=== PATIENT | female | born 1975 | race American Indian/Alaskan Native ===

== ENCOUNTER 2018-12-04 16:11 | Emergency (ER) | payer MEDICAID ==
[2018-12-04] MEDS ORDERED: KEPPRA 1,000 MG/NS 0.75% 100ML 1,000 MG/100 ML BAG IV ONE ×2 (16:28→16:31)
[2018-12-04 17:27] LABS: Basophils % (Auto) 0.5 % (0.0-1.8); Eosinophils # (Auto) 0.1 K/mm3 (0.0-0.4); Eosinophils % (Auto) 1.7 % (0.0-4.3); Hematocrit 36.6 % (30.3-42.9); Lymphocytes # (Auto) 1.2 K/mm3 (1.2-5.4); Lymphocytes % (Auto) 17.3 % (13.4-35.0); Mean Corpuscular HGB Conc 33 % (30-34); Mean Corpuscular Volume 85 fl (79-97); Monocytes # (Auto) 0.3 K/mm3 (0.0-0.8); Monocytes % (Auto) 4.7 % (0.0-7.3); Platelet Count 314 K/mm3 (140-440); Red Blood Count 4.31 M/mm3 (3.65-5.03); Red Cell Distribution Width 16.3 % (13.2-15.2)
[2018-12-04 17:44] LABS: Alanine Aminotransferase 11 units/L (7-56); Albumin 3.6 g/dL (3.9-5); BUN/Creatinine Ratio 9; Blood Urea Nitrogen 9 mg/dL (7-17); Calcium 8.9 mg/dL (8.4-10.2); Hemolysis Index 4
[2018-12-04 18:13] VITALS: BP 153/112
[2018-12-04] MEDS ORDERED: NORCO 5/325 PO ONE (18:16)
[2018-12-04 18:47] LABS: HCG Qualitative,Urine Negative (Negative)
[2018-12-04 18:50] LABS: Bacteria,Urine 1+ /HPF (Negative); Bilirubin,Urine NEG (Negative); Blood,Urine MOD (Negative); Color,Urine Yellow (Yellow); Mucus,Urine FEW /HPF; Urobilinogen,Urine < 2.0 mg/dL (<2.0)
--- NOTE | 2018-12-04 19:19 | Emergency Department Report ---
ED Seizure HPI - General Chief Complaint: Seizure Stated Complaint: SEIZURE Time Seen by Provider: 12/04/18 16:50 Source: patient Mode of arrival: Stretcher Limitations: No Limitations - History of Present Illness Initial Comments: h/o seizure d/o had a seizure at home today, ran out of keppra for a week. no obvious injuries. has h/o htn, also ran out of medications. wants meds refill. Complaint: seizure -: Gradual Description of Episode: loss of consciousness, tonic-clonic movement Duration of Episode: 30 -: second(s) Witnessed:: Yes Trauma: No Seizure History: known seizure disorder Place: home Possible Precipitating Event: none Associated Symptoms: denies other symptoms Treatments Prior to Arrival: none - Related Data Home Medications Medication Instructions Recorded Confirmed Last Taken Divalproex Sodium [Divalproex 500 mg PO DAILY 09/27/17 09/27/17 09/26/17 08:00 Sodium ER] Previous Rx's Medication Instructions Recorded Last Taken Type Aspirin [Aspirin EC] 81 mg PO DAILY #30 tablet. 09/27/17 Unknown Rx Olmesartan/Hydrochlorothiazide 1 tab PO QDAY 30 Days #30 tablet 12/04/18 Unknown Rx [Benicar HCT 20-12.5 mg] amLODIPine [Norvasc] 10 mg PO QDAY #30 tablet 12/04/18 Unknown Rx levETIRAcetam [Keppra TAB] 500 mg PO BID 30 Days #60 tablet 12/04/18 Unknown Rx Allergies Allergy/AdvReac Type Severity Reaction Status Date / Time lisinopril Allergy Hives Verified 09/26/17 16:22 Penicillins Allergy Rash Verified 02/17/16 07:57 ED Review of Systems ROS: Stated complaint: SEIZURE Other details as noted in HPI Comment: All other systems reviewed and negative Constitutional: denies: diaphoresis Gastrointestinal: denies: nausea, vomiting Genitourinary: denies: urgency, dysuria Skin: denies: rash Neurological: headache. denies: confusion ED Past Medical Hx - Past Medical History Previous Medical History?: Yes Hx Hypertension: Yes Hx CVA: Yes Hx Heart Attack/AMI: No Hx Congestive Heart Failure: No Hx Diabetes: No Hx Deep Vein Thrombosis: No Hx Pulmonary Embolism: No Hx GERD: No Hx Liver Disease: No Hx Renal Disease: No Hx Sickle Cell Disease: No Hx Arthritis: No Hx Headaches / Migraines: No Hx Seizures: Yes Hx Kidney Stones: No Hx Psychiatric Treatment: No Hx Asthma: No Hx COPD: No Hx Tuberculosis: No Hx Dementia: No Hx HIV: No Additional medical history: Seizures, Vaginal delivery x 2 - Surgical History Hx Coronary Stent: No Hx Open Heart Surgery: No Hx Pacemaker: No Hx Internal Defibrillator: No Hx Cholecystectomy: No Hx Appendectomy: No Hx Breast Surgery: No Additional Surgical History: cyst removed from left arm pit. - Social History Smoking Status: Never Smoker Substance Use Type: None - Medications Home Medications: Home Medications Medication Instructions Recorded Confirmed Last Taken Type Aspirin [Aspirin EC] 81 mg PO DAILY #30 tablet. 09/27/17 Unknown Rx Divalproex Sodium [Divalproex 500 mg PO DAILY 09/27/17 09/27/17 09/26/17 08:00 History Sodium ER] Olmesartan/Hydrochlorothiazide 1 tab PO QDAY 30 Days #30 tablet 12/04/18 Unknown Rx [Benicar HCT 20-12.5 mg] amLODIPine [Norvasc] 10 mg PO QDAY #30 tablet 12/04/18 Unknown Rx levETIRAcetam [Keppra TAB] 500 mg PO BID 30 Days #60 tablet 12/04/18 Unknown Rx ED Physical Exam - General Limitations: No Limitations General appearance: alert, in no apparent distress - Head Head exam: Present: atraumatic, normocephalic - Eye Eye exam: Present: normal appearance, PERRL, EOMI Pupils: Present: normal accommodation - ENT ENT exam: Present: normal exam, normal orophraynx - Neck Neck exam: Present: normal inspection - Respiratory Respiratory exam: Present: normal lung sounds bilaterally - Cardiovascular Cardiovascular Exam: Present: regular rate, normal rhythm - GI/Abdominal GI/Abdominal exam: Present: soft, normal bowel sounds - External exam: Present: normal external exam - Neurological Exam Neurological exam: Present: alert, oriented X3 ED Course Vital Signs 12/04/18 12/04/18 18:12 18:13 Temperature 98.3 F Pulse Rate 75 Respiratory 18 18 Rate Blood Pressure 153/112 [Left] O2 Sat by Pulse 100 100 Oximetry ED Medical Decision Making - Lab Data Result diagrams: 12/04/18 17:07 12/04/18 17:07 Critical care attestation.: If time is entered above; I have spent that time in minutes in the direct care of this critically ill patient, excluding procedure time. ED Disposition Clinical Impression: Seizure disorder Disposition: DC-01 TO HOME OR SELFCARE Is pt being admited?: No Does the pt Need Aspirin: No Condition: Stable Prescriptions: Olmesartan/Hydrochlorothiazide [Benicar HCT 20-12.5 mg] 1 tab PO QDAY 30 Days #30 tablet levETIRAcetam [Keppra TAB] 500 mg PO BID 30 Days #60 tablet amLODIPine [Norvasc] 10 mg PO QDAY #30 tablet Referrals: ZACK MCQUEEN MD [Primary Care Provider] - 3-5 Days
== END 2018-12-04 19:50 | disposition home or self-care (01) ==
LOC: ED 16:11
DX: G40.909 Epilepsy, unspecified, not intractable, without status epilepticus (principal); I10 Essential (primary) hypertension; I25.2 Old myocardial infarction; Z79.899 Other long term (current) drug therapy; Z76.0 Encounter for issue of repeat prescription; Z88.0 Allergy status to penicillin; Z88.6 Allergy status to analgesic agent
CPT/HCPCS: 36415; 80053; 81001; 81025; 85025; 96365; 99284; J1953

== ENCOUNTER 2019-01-27 17:41 | Emergency (ER) | payer MEDICAID ==
[2019-01-27] MEDS ORDERED: levETIRAcetam 500 MG TAB PO ONE (18:54)
[2019-01-27] MEDS ORDERED: LORazepam 2 MG/ML VIAL IV ONE (18:55)
--- NOTE | 2019-01-27 19:08 | Emergency Department Report ---
ED General Adult HPI - General Chief complaint: Seizure Stated complaint: Seizure Time Seen by Provider: 01/27/19 18:22 Source: patient, EMS Mode of arrival: Stretcher Limitations: No Limitations - History of Present Illness Initial comments: Patient presents to the emergency department for seizure. Patient has a history of seizures and takes 1500 mg of Keppra daily. Patient endorses that her seizure frequency has increased recently due to stressors at home. Patient denies headache, chest pain, or shortness of breath. The was present going from her seizure and the patient did not hit her head. -: Sudden Severity scale (0 -10): 0 Consistency: now resolved Improves with: none Worsens with: none Associated Symptoms: denies other symptoms Treatments Prior to Arrival: none - Related Data Home Medications Medication Instructions Recorded Confirmed Last Taken Divalproex Sodium [Divalproex 500 mg PO DAILY 09/27/17 09/27/17 09/26/17 08:00 Sodium ER] Previous Rx's Medication Instructions Recorded Last Taken Type Aspirin [Aspirin EC] 81 mg PO DAILY #30 tablet. 09/27/17 Unknown Rx Olmesartan/Hydrochlorothiazide 1 tab PO QDAY 30 Days #30 tablet 12/04/18 Unknown Rx [Benicar HCT 20-12.5 mg] amLODIPine [Norvasc] 10 mg PO QDAY #30 tablet 12/04/18 Unknown Rx levETIRAcetam [Keppra TAB] 500 mg PO BID 30 Days #60 tablet 12/04/18 Unknown Rx Allergies Allergy/AdvReac Type Severity Reaction Status Date / Time lisinopril Allergy Hives Verified 09/26/17 16:22 Penicillins Allergy Rash Verified 02/17/16 07:57 ED Review of Systems ROS: Stated complaint: Seizure Other details as noted in HPI Comment: All other systems reviewed and negative Constitutional: denies: chills, fever Eyes: denies: eye pain, eye discharge, vision change ENT: denies: ear pain, throat pain Respiratory: denies: cough, shortness of breath, wheezing Cardiovascular: denies: chest pain, palpitations Endocrine: no symptoms reported Gastrointestinal: denies: abdominal pain, nausea, diarrhea Genitourinary: denies: urgency, dysuria, discharge Musculoskeletal: denies: back pain, joint swelling, arthralgia Skin: denies: rash, lesions Neurological: denies: headache, weakness, paresthesias Psychiatric: denies: anxiety, depression Hematological/Lymphatic: denies: easy bleeding, easy bruising ED Past Medical Hx - Past Medical History Hx Hypertension: Yes Hx CVA: Yes Hx Heart Attack/AMI: No Hx Congestive Heart Failure: No Hx Diabetes: No Hx Deep Vein Thrombosis: No Hx Pulmonary Embolism: No Hx GERD: No Hx Liver Disease: No Hx Renal Disease: No Hx Sickle Cell Disease: No Hx Arthritis: No Hx Headaches / Migraines: No Hx Seizures: Yes Hx Kidney Stones: No Hx Psychiatric Treatment: No Hx Asthma: No Hx COPD: No Hx Tuberculosis: No Hx Dementia: No Hx HIV: No Additional medical history: Seizures, Vaginal delivery x 2 - Surgical History Hx Coronary Stent: No Hx Open Heart Surgery: No Hx Pacemaker: No Hx Internal Defibrillator: No Hx Cholecystectomy: No Hx Appendectomy: No Hx Breast Surgery: No Additional Surgical History: cyst removed from left arm pit. - Social History Smoking Status: Never Smoker - Medications Home Medications: Home Medications Medication Instructions Recorded Confirmed Last Taken Type Aspirin [Aspirin EC] 81 mg PO DAILY #30 tablet. 09/27/17 Unknown Rx Divalproex Sodium [Divalproex 500 mg PO DAILY 09/27/17 09/27/17 09/26/17 08:00 History Sodium ER] Olmesartan/Hydrochlorothiazide 1 tab PO QDAY 30 Days #30 tablet 12/04/18 Unknown Rx [Benicar HCT 20-12.5 mg] amLODIPine [Norvasc] 10 mg PO QDAY #30 tablet 12/04/18 Unknown Rx levETIRAcetam [Keppra TAB] 500 mg PO BID 30 Days #60 tablet 12/04/18 Unknown Rx ED Physical Exam - General Limitations: No Limitations General appearance: alert, in no apparent distress - Head Head exam: Present: atraumatic, normocephalic - Eye Eye exam: Present: normal appearance, PERRL, EOMI - ENT ENT exam: Present: mucous membranes moist - Neck Neck exam: Present: normal inspection - Respiratory Respiratory exam: Present: normal lung sounds bilaterally. Absent: respiratory distress - Cardiovascular Cardiovascular Exam: Present: regular rate, normal rhythm. Absent: systolic murmur, diastolic murmur, rubs, gallop - GI/Abdominal GI/Abdominal exam: Present: soft, normal bowel sounds - Extremities Exam Extremities exam: Present: normal inspection - Back Exam Back exam: Present: normal inspection - Neurological Exam Neurological exam: Present: alert, oriented X3, CN II-XII intact. Absent: motor sensory deficit - Psychiatric Psychiatric exam: Present: normal affect, normal mood - Skin Skin exam: Present: warm, dry, intact, normal color. Absent: rash ED Course Vital Signs 01/27/19 01/27/19 01/27/19 17:58 18:00 18:01 Temperature 98.9 F Pulse Rate 87 87 87 Respiratory 15 15 14 Rate Blood Pressure 139/86 Blood Pressure 139/86 [Right] O2 Sat by Pulse 99 99 99 Oximetry 01/27/19 01/27/19 01/27/19 18:02 18:16 18:30 Temperature Pulse Rate 87 83 Respiratory 14 16 18 Rate Blood Pressure 139/86 139/86 Blood Pressure [Right] O2 Sat by Pulse 99 99 99 Oximetry 01/27/19 01/27/19 01/27/19 18:46 19:14 19:16 Temperature Pulse Rate 79 Respiratory 10 L Rate Blood Pressure 139/86 139/86 139/86 Blood Pressure [Right] O2 Sat by Pulse 97 Oximetry 01/27/19 19:35 Temperature Pulse Rate Respiratory Rate Blood Pressure 139/86 Blood Pressure [Right] O2 Sat by Pulse 82 L Oximetry ED Medical Decision Making - Lab Data Result diagrams: 01/27/19 19:37 Lab Results 01/27/19 Range/Units 19:37 Sodium 136 L (137-145) mmol/L Potassium 3.7 (3.6-5.0) mmol/L Chloride 103.3 (98-107) mmol/L Carbon Dioxide 24 (22-30) mmol/L Anion Gap 12 mmol/L BUN 9 (7-17) mg/dL Creatinine 0.9 (0.7-1.2) mg/dL Estimated GFR > 60 ml/min BUN/Creatinine Ratio 10 % Glucose 98 (65-100) mg/dL Calcium 8.4 (8.4-10.2) mg/dL - Medical Decision Making She'll receive IV Ativan and by mouth [place] Discussed plan of care with patient and her Critical care attestation.: If time is entered above; I have spent that time in minutes in the direct care of this critically ill patient, excluding procedure time. ED Disposition Clinical Impression: Seizure Disposition: DC-01 TO HOME OR SELFCARE Is pt being admited?: No Does the pt Need Aspirin: No Condition: Stable Instructions: Recurrent Seizures Adult (ED) Additional Instructions: return if worse Referrals: PRIMARY CARE,MD [Primary Care Provider] - 3-5 Days [facility] [Provider Group] - 3-5 Days [facility] [Provider Group] - 3-5 Days Time of Disposition: 20:47
[2019-01-27 20:14] LABS: BUN/Creatinine Ratio 10; Blood Urea Nitrogen 9 mg/dL (7-17); Calcium 8.4 mg/dL (8.4-10.2); Hemolysis Index 9
[2019-01-27 21:17] VITALS: BP 137/82
== END 2019-01-27 21:17 | disposition home or self-care (01) ==
LOC: ED 17:41
DX: R56.9 Unspecified convulsions (principal); I10 Essential (primary) hypertension; Z86.73 Personal history of transient ischemic attack (TIA), and cerebral infarction without residual deficits; Z88.0 Allergy status to penicillin; Z88.6 Allergy status to analgesic agent
CPT/HCPCS: 36415; 80048; 93005; 93010; 96374; 99284; J2060

== ENCOUNTER 2019-09-08 11:00 | Emergency (ER) | payer MEDICAID ==
[2019-09-08] MEDS ORDERED: levETIRAcetam 1000 MG/NS 0.75% 1,000 MG/100 ML BAG IV ONE (11:39)
--- NOTE | 2019-09-08 11:40 | Emergency Department Report ---
ED Seizure HPI - General Chief Complaint: Seizure Stated Complaint: SEIZURE Time Seen by Provider: 09/08/19 11:29 Source: patient, EMS ( EMS documentation not available at time of chart dictation ), RN notes reviewed, old records reviewed Mode of arrival: Stretcher Limitations: No Limitations - History of Present Illness Initial Comments: The patient is a 44-year-old female. She is not known to myself previously. She has a history of obesity, hypertension, and seizure disorder. Her last seizure was a few months ago. She takes Keppra, but ran out of her medications about a week ago. The patient states that she is not , and denies deliv ering, or within the past 6 weeks. She denies fever, cough, and COVID symptoms. She was in her usual state of health, doing some shopping, when she believes that she had a seizure. Prior to the event, she endorsed not having any symptoms. She has left-sided supraorbital pain, but denies ocular pain, loss of visual acuity, neck pain, chest pain, abdominal pain or shortness of breath. She denies additional injuries and denies additional complaints. She denies irritative and obstructive urinary symptoms. She denies recreational drug use. MD Complaint: seizure -: Sudden Description of Episode: loss of consciousness -: second(s) Witnessed:: Yes Trauma: Yes Seizure History: none, other Place: other Possible Precipitating Event: other (Ran out of medication) Associated Symptoms: denies: chest pain, confusion, cough, diaphoresis, fev er/chills, loss of appetite, malaise, rash, shortness of breath, weakness, tongue injury, shoulder dislocation - Related Data Home Medications Medication Instructions Recorded Confirmed Last Taken Divalproex Sodium [Divalproex 500 mg PO DAILY 09/27/17 09/27/17 09/26/17 08:00 Sodium ER] Previous Rx's Medication Instructions Recorded Last Taken Type Aspirin [Aspirin EC] 81 mg PO DAILY #30 tablet. 09/27/17 Unknown Rx amLODIPine 10 mg PO QDAY #30 tablet 12/04/18 Unknown Rx Olmesartan/Hydrochlorothiazide 1 tab PO QDAY 30 Days #30 tablet 09/08/19 Unknown Rx [Benicar HCT 20-12.5 mg] levETIRAcetam [Keppra TAB] 1,500 mg PO BID 30 Days #90 tablet 09/08/19 Unknown Rx Allergies Allergy/AdvReac Type Severity Reaction Status Date / Time lisinopril Allergy Hives Verified 09/08/19 11:24 Penicillins Allergy Rash Verified 09/08/19 11:24 ED Review of Systems ROS: Stated complaint: SEIZURE Other details as noted in HPI Constitutional: denies: fever Eyes: other (Supraorbital hematoma). denies: vision change ENT: denies: epistaxis Respiratory: denies: cough Cardiovascular: denies: chest pain Gastrointestinal: denies: abdominal pain Genitourinary: denies: urgency, dysuria Musculoskeletal: denies: back pain Neurological: denies: weakness, numbness, paresthesias, confusion Psychiatric: as per HPI Hematological/Lymphatic: as per HPI ED Past Medical Hx - Past Medical History Previous Medical History?: Yes Hx Hypertension: Yes Hx CVA: Yes Hx Heart Attack/AMI: No Hx Congestive Heart Failure: No Hx Diabetes: No Hx Deep Vein Thrombosis: No Hx Pulmonary Embolism: No Hx GERD: No Hx Liver Disease: No Hx Renal Disease: No Hx Sickle Cell Disease: No Hx Arthritis: No Hx Headaches / Migraines: No Hx Seizures: Yes Hx Kidney Stones: No Hx Psychiatric Treatment: No Hx Asthma: No Hx COPD: No Hx Tuberculosis: No Hx Dementia: No Hx HIV: No Additional medical history: Seizures, Vaginal delivery x 2 - Surgical History Hx Coronary Stent: No Hx Open Heart Surgery: No Hx Pacemaker: No Hx Internal Defibrillator: No Hx Cholecystectomy: No Hx Appendectomy: No Hx Breast Surgery: No Additional Surgical History: cyst removed from left arm pit. - Social History Smoking Status: Never Smoker Substance Use Type: None - Medications Home Medications: Home Medications Medication Instructions Recorded Confirmed Last Taken Type Aspirin [Aspirin EC] 81 mg PO DAILY #30 tablet. 09/27/17 Unknown Rx Divalproex Sodium [Divalproex 500 mg PO DAILY 09/27/17 09/27/17 09/26/17 08:00 History Sodium ER] amLODIPine 10 mg PO QDAY #30 tablet 12/04/18 Unknown Rx Olmesartan/Hydrochlorothiazide 1 tab PO QDAY 30 Days #30 tablet 09/08/19 Unknown Rx [Benicar HCT 20-12.5 mg] levETIRAcetam [Keppra TAB] 1,500 mg PO BID 30 Days #90 tablet 09/08/19 Unknown Rx ED Physical Exam - General Limitations: No Limitations General appearance: alert, in no apparent distress - Head Head exam: Present: atraumatic, normocephalic, other (Left-sided supraorbital hematoma) - Eye Eye exam: Present: normal appearance, PERRL, EOMI, other (Visual acuity intact t o finger counting, color perception, reading at a close distance). Absent: nystagmus - ENT ENT exam: Present: normal exam, normal orophraynx, mucous membranes moist, normal external ear exam - Neck Neck exam: Present: normal inspection, full ROM. Absent: tenderness, meningismus - Respiratory Respiratory exam: Present: normal lung sounds bilaterally. Absent: respiratory distress - Cardiovascular Cardiovascular Exam: Present: regular rate, normal rhythm, normal heart sounds. Absent: bradycardia, tachycardia, irregular rhythm, systolic murmur, diastolic murmur, rubs, gallop - GI/Abdominal GI/Abdominal exam: Present: soft. Absent: distended, tenderness, guarding, rebound, rigid, pulsatile mass - Extremities Exam Extremities exam: Present: normal inspection, full ROM, other (2+ pulses noted in the bilateral upper and lower extremities. There is no palpable cord. negative Homans sign. Muscular compartments are soft. The pelvis is stable.). Absent: pedal edema, calf tenderness - Back Exam Back exam: Present: normal inspection, full ROM. Absent: tenderness, CVA tenderness (R), CVA tenderness (L), paraspinal tenderness, vertebral tenderness - Neurological Exam Neurological exam: Present: alert, oriented X3, normal gait, other (No facial droop. Tongue midline. Extraocular movements intact bilaterally. Facial sensation intact to light touch in V1, V2, V3 distribution bilaterally. 5 and a 5 strength in 4 extremities. Sensation intact to light touch in 4 extre mities.). Absent: motor sensory deficit - Psychiatric Psychiatric exam: Present: flat affect - Skin Skin exam: Present: warm, dry, intact, normal color. Absent: rash ED Course Vital Signs 09/08/19 09/08/19 09/08/19 11:20 11:24 13:37 Temperature 98.1 F Pulse Rate 82 61 Respiratory 16 16 16 Rate Blood Pressure 150/99 Blood Pressure 158/98 [Right] O2 Sat by Pulse 97 97 99 Oximetry - Reevaluation(s) Reevaluation #1: 09/08/19 14:31 Patient states that she will follow-up with her neurologist, Dr. Villegas, and her primary care doctor. She is also requesting a refill on her olmesartan HCTZ prescription. ED Medical Decision Making - Lab Data Result diagrams: 09/08/19 12:58 09/08/19 12:58 Vital Signs 09/08/19 09/08/19 09/08/19 11:20 11:24 13:37 Temperature 98.1 F Pulse Rate 82 61 Respiratory 16 16 16 Rate Blood Pressure 150/99 Blood Pressure 158/98 [Right] O2 Sat by Pulse 97 97 99 Oximetry Lab Results 09/08/19 09/08/19 09/08/19 Range/Units 12:58 12:58 12:58 Hgb 11.5 (10.1-14.3) gm/dl Hct 35.0 (30.3-42.9) % Plt Count 301 (140-440) K/mm3 Sodium 137 (137-145) mmol/L Potassium 3.8 (3.6-5.0) mmol/L Chloride 100.9 (98-107) mmol/L Carbon Dioxide 25 (22-30) mmol/L Anion Gap 15 mmol/L BUN 10 (7-17) mg/dL Creatinine 0.9 (0.7-1.2) mg/dL Estimated GFR > 60 ml/min BUN/Creatinine Ratio 11 % Glucose 90 (65-100) mg/dL Calcium 8.6 (8.4-10.2) mg/dL Magnesium 2.20 (1.7-2.3) mg/dL Total Creatine Kinase 176 H (30-135) units/L HCG, Quant < 2 (0-4) mIU/mL - EKG Data -: EKG Interpreted by Me EKG shows normal: sinus rhythm Rate: normal - EKG Data 09/08/19 14:20 Today's EKG is unchanged from prior EKG. It shows a sinus rhythm, 63 bpm, left axis, left anterior fascicular block, intervals within normal limits, high left ventricular voltage. The EKG is not a STEMI. The EKG is unchanged from prior EKG from January 2019 - Radiology Data Radiology results: pending, image reviewed interpreted by me: Noncontrast CT scan of the brain, reviewed by myself, negative for acute finding CT HEAD WITHOUT CONTRAST INDICATION / CLINICAL INFORMATION: Seizure. TECHNIQUE: Axial imaging performed from the skull apex through the skull base without the use of contrast. Sagittal and coronal reformatted images. All CT scans at this location are performed using CT dose reduction for ALARA by means of automated exposure control. COMPARISON: 09/26/2017 FINDINGS: CEREBRAL PARENCHYMA: No significant abnormality. No acute territorial infarct. HEMORRHAGE: None. EXTRA-AXIAL SPACES: Normal in size and morphology for the patient's age. VENTRICULAR SYSTEM: Normal in size and morphology for the patient's age. MIDLINE SHIFT OR HERNIATION: None. CEREBELLUM / BRAINSTEM: No significant abnormality. CALVARIUM: No significant abnormality. ORBITS: Normal as visualized. PARANASAL SINUSES / MASTOID AIR CELLS: Normal as visualized. SOFT TISSUES of HEAD: No significant abnormality. ADDITIONAL FINDINGS: None. IMPRESSION: No acute intracranial abnormality. Signer Name: Cornel Garnica Jr, MD Signed: 09/08/2019 1:22 PM Workstation Name: [id number] - Medical Decision Making Differential diagnosis, including but not limited to: Seizure, closed head injury, concussion, medication noncompliance, electrolyte derangement Assessment and plan: 44-year-old female who ran out of her Keppra medication approximately 1 week ago, presenting with probable breakthrough seizure, now resolved. She is afebrile with reassuring vital signs. She denied cough and urinary symptoms. Her physical examination is otherwise unremarkable. She has a GCS of 15. Patient is clinically sober at this time. The cervical spine is cleared through nexus and turkmen c spine rule patient loaded with 1.5 g of Keppra while here in the emergency room. Patient is observed for hours in the emergency room without recurrent convulsive event, or loss of consciousness. We will refill her Keppra medication. She is counseled to not drive or operate motor vehicles for the next 6 months. She is suitable to follow-up with an outpatient primary care doctor or neurologist. Critical care attestation.: If time is entered above; I have spent that time in minutes in the direct care of this critically ill patient, excluding procedure time. ED Disposition Clinical Impression: Seizure disorder, Medication refill Closed head injury Qualifiers: Encounter type: initial encounter Qualified Code(s): S09.90XA - Unspecified injury of head, initial encounter Disposition: DC-01 TO HOME OR SELFCARE Is pt being admited?: No Does the pt Need Aspirin: No Condition: Stable Additional Instructions: Do not drive or operate motor vehicles for the next 6 months, or until cleared to do so by a primary care doctor or neurologist. Follow-up with a primary care doctor or neurologist within the next 7 to 10 days. Avoid strenuous physical activity, and contact sports/athletics. Make certain to take your seizure medication as prescribed and directed. Noncompliance with seizure medication may cause breakthrough seizure, which may cause , disability, paralysis, loss of quality of life. Patient may also have a concussion. Concussion is a form of mild brain injury. Patient may experience sensitivity to light, sensitivity to sound, dizziness, forgetfulness, confusion, sometimes feeling in a fog. Symptoms of concussion may last for a few days to a few weeks to even a few months. The patient should not participate in sports or strenuous physical activity until cleared to do so by her primary care doctor or neurologist. Please return to the emergency room right away with new pain, worsening pain, migration of pain, projectile vomiting, change in mental status, confusion, inability to tolerate liquid feeds. Make certain to get at least 7 to 8 hours of good quality sleep each night, patient may take [id number] Tylenol and/or ibuprofen as needed for pain, and minimize exposure to computer screens, and to electronic devices. Referrals: CAMMY VILLEGAS MD [Referring] - 3-5 Days JAYLIN HERZOG MD [Staff Physician] - 3-5 Days Forms: Work/School Release Form(ED)
[2019-09-08] MEDS ORDERED: levETIRAcetam 500 MG in DEXTROSE 5% IN WATER 100 ML IV ONE (12:00)
[2019-09-08 13:20] LABS: Hemoglobin 11.5 gm/dl (10.1-14.3)
[2019-09-08 13:38] VITALS: BP 158/98
[2019-09-08 13:40] LABS: BUN/Creatinine Ratio 11; Blood Urea Nitrogen 10 mg/dL (7-17); Calcium 8.6 mg/dL (8.4-10.2); Hemolysis Index 14
--- NOTE | 2019-09-08 18:52 | Cat Scan Report ---
CT HEAD WITHOUT CONTRAST INDICATION / CLINICAL INFORMATION: Seizure. TECHNIQUE: Axial imaging performed from the skull apex through the skull base without the use of cont rast. Sagittal and coronal reformatted images. All CT scans at this location are performed using CT dose reduction for ALARA by means of automated exposure control. COMPARISON: 09/26/2017 FINDINGS: CEREBRAL PARENCHYMA: No significant abnormality. No acute territorial infarct. HEMORRHAGE: None. EXTRA-AXIAL SPACES: Normal in size and morphology for the patient's age. VENTRICULAR SYSTEM: Normal in size and morphology for the patient's age. MIDLINE SHIFT OR HERNIATION: None. CEREBELLUM / BRAINSTEM: No significant abnormality. CALVARIUM: No significant abnormality. ORBITS: Normal as visualized. PARANASAL SINUSES / MASTOID AIR CELLS: Normal as visualized. SOFT TISSUES of HEAD: No significant abnormality. ADDITIONAL FINDINGS: None. IMPRESSION: No acute intracranial abnormality. Signer Name: Cornel Garnica Jr, MD Signed: 09/08/2019 2:22 PM Workstation Name: [id number]
== END 2019-09-08 15:51 | disposition home or self-care (01) ==
LOC: ED 11:00
DX: S06.9X9A Unspecified intracranial injury with loss of consciousness of unspecified duration, initial encounter (principal); I10 Essential (primary) hypertension; G40.909 Epilepsy, unspecified, not intractable, without status epilepticus; Z76.0 Encounter for issue of repeat prescription; Z86.73 Personal history of transient ischemic attack (TIA), and cerebral infarction without residual deficits; Z79.899 Other long term (current) drug therapy; Z98.890 Other specified postprocedural states; Z88.0 Allergy status to penicillin; Z88.8 Allergy status to other drugs, medicaments and biological substances; X58.XXXA Exposure to other specified factors, initial encounter; Y93.89 Activity, other specified; Y92.89 Other specified places as the place of occurrence of the external cause; Y99.8 Other external cause status
CPT/HCPCS: 36415; 70450; 80048; 82550; 83735; 84702; 85014; 85018; 85049; 93005; 96365; 96366; 99285; J1953